=== PATIENT | male | born 1995 | race African-American/Black ===

== ENCOUNTER 2023-09-01 15:36 | Emergency (ER) | payer OTHER ==
[~2023-09-01] VITALS: Ht 185.4 cm; Wt 86.2 kg
[2023-09-01 16:17] VITALS: BP 129/61; TEMP 98.1; O2SAT 100
[2023-09-01] MEDS ORDERED: BICT1TAB PO (16:36)
== END 2023-09-01 17:01 | disposition home or self-care (01) ==
LOC: ER 15:53
DX: Z20.2 Contact with and (suspected) exposure to infections with a predominantly sexual mode of transmission (principal); Z79.899 Other long term (current) drug therapy